=== PATIENT | female | born 1960 | race Caucasian/White ===

== ENCOUNTER 2017-07-28 10:36 | Emergency (ER) | payer OTHER ==
--- NOTE | 2017-07-28 10:50 | CPEKG ---
Heart Rate: 103 RR Interval: 583 P-R Interval: 152 QRSD Interval: 100 QT Interval: 360 QTC Interval: 471 P [place]: 72 QRS [place]: 34 T Wave [place]: 37 EKG Severity - OTHERWISE NORMAL ECG - EKG Impression: SINUS TACHYCARDIA Electronically Signed By: Bar Corrales 29-Jul-2017 08:13:14
--- NOTE | 2017-07-28 10:56 | EDPHY ---
H & P Time Seen by Provider: 07/28/17 10:43 HPI/ROS: 57-year-old female presents complaining of lightheadedness that began at about 7 :00 a.m., she states she has a history of asthma for him felt slightly short of breath. No chest pain, no fevers no chills no headache no numbness or tingling in her extremities. No difficulty with speech. After beginning to feel slightly short of breath she decided to use her albuterol inhaler. She continued to feel lightheaded intermittently a noticed that her heart felt like it was racing. Review of systems As per HPI General no fever no chills no weakness HEENT no eye pain no eye discharge. No eye redness, no sore throat Respiratory no cough, mild transient shortness of breath Cardiac no chest pain, no peripheral edema, positive palpitations GI no abdominal pain, no diarrhea, no constipation, no nausea, no vomiting no flank pain, no hematuria, no dysuria Musculoskeletal no myalgias, no joint pain Heme no easy bruising, no easy bleeding Endo no polyuria, no polydipsia Skin no rashes, no pruritus Neuro no syncope, positive lightheadedness Psych is no suicidal ideation, no homicidal ideation Past Medical/Surgical History: Asthma Social History: No drugs or alcohol Smoking Status: Never smoked Physical Exam: Petite 57-year-old female alert and oriented no acute distress nontoxic appearance afebrile HEENT atraumatic normocephalic, extraocular muscles intact, anicteric Oropharynx negative for erythema negative exudate, tolerating her own secretions Neck supple no meningismus Lungs clear to auscultation bilaterally Heart regular rate and rhythm without murmur rub or gallop Abdomen nondistended normoactive bowel sounds soft nontender Back no CVA tenderness, no step-offs, no spinal tenderness Extremities no cyanosis clubbing or edema Neuro alert and oriented, no focal deficits Constitutional: Initial Vital Signs Temperature (C) 37 C 07/28/17 11:06 Heart Rate 99 07/28/17 11:06 Respiratory Rate 16 07/28/17 11:06 Blood Pressure 104/76 07/28/17 11:06 O2 Sat (%) 95 07/28/17 11:06 O2 Delivery Mode Room Air Allergies/Adverse Reactions: aspirin Allergy (Severe, Verified 07/28/17 11:09) PUFFY Home Medications: Medication Instructions Recorded Albuterol Inhaler Hfa 07/09/15 Medical Decision Making - Diagnostics Imaging Results: Imaging Impressions Chest X-Ray 07/28/17 10:55 Impression: Stable and normal. No pneumonia. ED Course/Re-evaluation: Patient seen and evaluated for lightheadedness and palpitations. EKG sinus tachycardia, rate 104 Patient given IV normal saline 1 L Lab sent Troponin normal, TSH normal CBC normal CMP normal D-dimer negative Chest x-ray normal Patient feeling markedly improved after fluids Impression Lightheadedness Palpitations, possibly induced by albuterol Plan Discharged to home Rest, drink plenty of liquids Follow up with primary care physician Discussed with patient the possibility of getting Holter monitor via her primary care physician - Data Points Laboratory Results: Laboratory Results 07/28/17 11:08 07/28/17 11:08 07/28/17 07/28/17 07/28/17 11:08 11:08 11:08 WBC 5.74 10^3/uL 10^3/uL (3.80-9.50) RBC 4.76 10^6/uL 10^6/uL (4.18-5.33) Hgb 14.3 g/dL g/dL (12.6-16.3) Hct 41.1 % % (38.0-47.0) MCV 86.3 fL fL (81.5-99.8) MCH 30.0 pg pg (27.9-34.1) MCHC 34.8 g/dL g/dL (32.4-36.7) RDW 13.8 % % (11.5-15.2) Plt Count 232 10^3/uL 10^3/uL (150-400) MPV 10.6 fL fL (8.7-11.7) Neut % (Auto) 50.7 % % (39.3-74.2) Lymph % (Auto) 39.7 % % (15.0-45.0) [place] % (Auto) 8.0 % % (4.5-13.0) Eos % (Auto) 1.0 % % (0.6-7.6) Baso % (Auto) 0.3 % % (0.3-1.7) Nucleat RBC Rel Count 0.0 % % (0.0-0.2) Absolute Neuts (auto) 2.90 10^3/uL 10^3/uL (1.70-6.50) Absolute Lymphs (auto) 2.28 10^3/uL 10^3/uL (1.00-3.00) Absolute Monos (auto) 0.46 10^3/uL 10^3/uL (0.30-0.80) Absolute Eos (auto) 0.06 10^3/uL 10^3/uL (0.03-0.40) Absolute Basos (auto) 0.02 10^3/uL 10^3/uL (0.02-0.10) Absolute Nucleated RBC 0.00 10^3/uL 10^3/uL (0-0.01) Immature Gran % 0.3 % % (0.0-1.1) Immature Gran # 0.02 10^3/uL 10^3/uL (0.00-0.10) D-Dimer < 0.27 ug/mLFEU ug/mLFEU (0.00-0.50) Sodium 138 mEq/L mEq/L (134-144) Potassium 3.9 mEq/L mEq/L (3.5-5.2) Chloride 103 mEq/L mEq/L (97-110) Carbon Dioxide 23 mEq/l mEq/l (22-31) Anion Gap 12 mEq/L mEq/L (8-16) BUN 13 mg/dL mg/dL (7-23) Creatinine 0.5 mg/dL L mg/dL (0.6-1.0) Estimated GFR > 60 Glucose 92 mg/dL mg/dL (70-100) Calcium 9.7 mg/dL mg/dL (8.5-10.4) Total Bilirubin 0.8 mg/dL mg/dL (0.1-1.4) AST 26 IU/L IU/L (14-46) ALT 44 IU/L IU/L (9-52) Alkaline Phosphatase 89 IU/L IU/L (38-126) Troponin I < 0.012 ng/mL ng/mL (0.000-0.034) Total Protein 6.8 g/dL g/dL (6.3-8.2) Albumin 4.2 g/dL g/dL (3.5-5.0) TSH 0.791 uIU/mL uIU/mL (0.465-4.680) Medications Given: Discontinued Medications Sodium Chloride (Ns) 1,000 mls @ 0 mls/hr IV ONCE ONE PRN Reason: Wide Open Stop: 07/28/17 11:19 Last Admin: 07/28/17 11:35 Dose: 1,000 mls Departure - Departure Disposition: Home, Routine, Self-Care Clinical Impression: Dizziness, nonspecific, Mild dehydration, Rapid palpitations Condition: Good Instructions: Palpitations (ED), Lightheadedness (ED) Additional Instructions: Follow up with your doctor in the next 1-7 days. Referrals: Dbeorah De Jesus [Primary Care Provider] - As per Instructions
[2017-07-28 11:10] LABS: % IMMATURE GRANULYOCYTES 0.3 % (0.0-1.1); ABSOLUTE IMMATURE GRANULOCYTES 0.02 10^3/uL (0.00-0.10); ADD DIFF? NO; ADD MORPH? NO; ADD SCAN? NO; ATYPICAL LYMPHOCYTE FLAG 10 (0-99); FRAGMENT RBC FLAG 0 (0-99); HEMATOCRIT 41.1 % (38.0-47.0); HEMOGLOBIN 14.3 g/dL (12.6-16.3); LEFT SHIFT FLG 0 (0-99); LIPEMIA HEMOLYSIS FLAG 90 (0-99); MEAN CELL HEMOGLOBIN CONCENTR. 34.8 g/dL (32.4-36.7); MEAN CELL VOLUME 86.3 fL (81.5-99.8); MEAN PLATELET VOLUME 10.6 fL (8.7-11.7); PLATELET CLUMPS FLAG 0 (0-99); PLATELET COUNT 232 10^3/uL (150-400); RED BLOOD CELL COUNT 4.76 10^6/uL (4.18-5.33); RED CELL DISTRIBUTION WIDTH 13.8 % (11.5-15.2)
[2017-07-28] MEDS ORDERED: NS 1,000 ML IV ONE (11:18)
[2017-07-28 11:28] LABS: ALANINE AMINOTRANSFERASE 44 IU/L (9-52); ALBUMIN 4.2 g/dL (3.5-5.0); ALKALINE PHOSPHATASE 89 IU/L (38-126); ANION GAP 12 mEq/L (8-16); ASPARTATE AMINOTRANSFERASE 26 IU/L (14-46); BILIRUBIN,TOTAL 0.8 mg/dL (0.1-1.4); CALCIUM 9.7 mg/dL (8.5-10.4); CARBON DIOXIDE 23 mEq/l (22-31); CHLORIDE 103 mEq/L (97-110); CREATININE 0.5 mg/dL (0.6-1.0); GLOMERULAR FILTRATION RATE > 60; GLUCOSE 92 mg/dL (70-100); POTASSIUM 3.9 mEq/L (3.5-5.2); SODIUM 138 mEq/L (134-144); TOTAL PROTEIN 6.8 g/dL (6.3-8.2)
[2017-07-28 11:52] LABS: TROPONIN I < 0.012 ng/mL (0.000-0.034)
[2017-07-28 12:07] VITALS: PULSE 81; TEMP 98.4; O2SAT 97
[2017-07-28 12:45] VITALS: BP 112/67; RESP 18
== END 2017-07-28 12:38 | disposition home or self-care (01) ==
LOC: CED 10:36
DX: R42 Dizziness and giddiness (principal); E86.0 Dehydration; R00.2 Palpitations; J45.909 Unspecified asthma, uncomplicated
CPT/HCPCS: 71020-PO; 80053-PO; 84443-PO; 84484-PO; 85025-PO; 85378-PO